=== PATIENT | female | born 1995 | race Caucasian/White ===

== ENCOUNTER 2018-12-29 12:30 | Emergency (ER) | payer OTHER ==
[2018-12-29] MEDS ORDERED: FAMOTIDINE 20 MG/2 ML VIAL IV ONE (14:56)
[2018-12-29] MEDS ORDERED: ONDANSETRON 4 MG/2 ML VIAL ONE (14:56)
[2018-12-29] MEDS ORDERED: NA CHLORIDE 0.9% 1,000 ML ONE ×2 (14:56→16:19)
[2018-12-29 15:08] LABS: Absolute Lymphocytes (CBC) 0.8 K/uL (0.7-4.9); Absolute Monocytes 0.7 K/uL (0.1-1.3); Absolute Neutrophil 15.5 K/uL (1.8-8.0); Basophils % 0.2 % (0-1.3); Eosinophils % 0.3 % (0-4.4); Hematocrit 46.1 % (36.0-45.0); Lymphocytes % 4.9 % (15.3-44.8); Monocytes % 4.2 % (3.3-12.3); RBC Red Blood Cell Count 5.02 M/uL (3.86-4.86)
[2018-12-29 15:12] LABS: ALT/SGPT 59 U/L (12-78); AST/SGOT 105 U/L (15-37); Albumin 4.2 g/dL (3.4-5.0); Alkaline Phosphatase 48 U/L (45-117); BUN Blood Urea Nitrogen 15 mg/dL (7-18); Bicarbonate 26 mmol/L (21-32); Bilirubin Direct 0.2 mg/dL (0-0.2); Bilirubin Total 0.5 mg/dL (0.2-1.0); Glucose Level 90 mg/dL (74-106); Lipase 84 U/L (73-393); Potassium 3.5 mmol/L (3.5-5.1); Protein, Total 7.4 g/dL (6.4-8.2); Sodium Level 141 mmol/L (136-145)
--- NOTE | 2018-12-29 16:04 | RAD REPORT ---
EXAM DESCRIPTION: CT - Abdomen Pelvis W Contrast - 12/29/2018 3:39 pm CLINICAL HISTORY: Abdominal pain with diarrhea and vomiting COMPARISON: none. TECHNIQUE: Computed axial tomography of the abdomen pelvis was obtained. 100 cc Isovue-300 was admin istered intravenously. Oral contrast was not requested which limits evaluation of bowel. All CT scans are performed using dose optimization technique as appropriate and may include automated exposure control or mA/KV adjustment according to patient size. FINDINGS: The liver, spleen, pancreas, adrenal and kidneys appear unremarkable. There is no evidence of diverticulitis. The appendix is normal caliber An adnexal mass is not seen Fluid is present throughout nondilated small bowel IMPRESSION: Fluid within nondilated small bowel may indicate an enteritis
[2018-12-29] MEDS ORDERED: PROMETHAZINE 25 MG/ML VIAL ONE (16:19)
--- NOTE | 2018-12-29 16:59 | ER ---
Nurse's Notes [facility] Name: Codie Matthews Age: 23 yrs Sex: Female : 1995 Arrival Date: 12/29/2018 Time: 12:32 Bed 8 Private MD: None, None Diagnosis: Nausea and vomiting;Diarrhea, unspecified Presentation: 12/29 13:11 Presenting complaint: Patient states: crushing mid abdominal pain started this morning dm5 9/10. pt also report nausea vomiting diarrhea. Transition of care: patient was not received from another setting of care. Onset of symptoms was December 29, 2018. Risk Assessment: Do you want to hurt yourself or someone else? Patient reports no desire to harm self or others. Initial Sepsis Screen: Does the patient meet any 2 criteria? No. Patient's initial sepsis screen is negative. Does the patient have a suspected source of infection? No. Patient's initial sepsis screen is negative. Care prior to arrival: None. 13:11 Method Of Arrival: Ambulatory dm5 13:11 Acuity: ROCHELLE 3 dm5 Triage Assessment: 15:31 General: Appears in no apparent distress. uncomfortable, slender, Behavior is calm, bp cooperative, appropriate for age. 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 - Social history:: Smoking status: Patient/guardian denies using tobacco. - Ebola Screening: : Patient negative for fever greater than or equal to 101.5 degrees Fahrenheit, and additional compatible Ebola Virus Disease symptoms Patient denies exposure to infectious person Patient denies travel to an Ebola-affected area in the 21 days before illness onset No symptoms or risks identified at this time. Screenin:08 Abuse screen: Denies threats or abuse. Denies injuries from another. Nutritional bp screening: No deficits noted. Tuberculosis screening: No symptoms or risk factors identified. Fall Risk None identified. Assessment: 14:30 General: Appears in no apparent distress. uncomfortable, slender, Behavior is calm, bp cooperative, appropriate for age. Pain: Complains of pain in abdomen. Neuro: Level of Consciousness is awake, alert, obeys commands, Oriented to person, place, time, situation, Appropriate for age. Cardiovascular: No deficits noted. Respiratory: Airway is patent Respiratory effort is even, unlabored, Respiratory pattern is regular, symmetrical. GI: Bowel sounds present X 4 quads. Abd is soft X 4 quads Reports nausea, vomiting. : No signs and/or symptoms were reported regarding the genitourinary system. EENT: No deficits noted. Derm: No deficits noted. Musculoskeletal: Circulation, motion, and sensation intact. Range of motion: intact in all extremities. 17:20 Reassessment: PT D/C HOME AMBULATORY, DX WITH NAUSEA AND VOMITING. bp Vital Signs: 13:14 BP 152 / 92; Pulse 107; Resp 18; Temp 98(TE); Pulse Ox 100% on R/A; Weight 69.4 kg; dm5 Height 5 ft. 4 in. (162.56 cm); Pain 9/10; 15:00 BP 128 / 61; Pulse 97; Resp 14; Pulse Ox 100% ; bp 16:00 BP 130 / 68; Pulse 92; Resp 14; Pulse Ox 100% ; bp 17:00 BP 138 / 95; Pulse 87; Resp 12; Pulse Ox 100% ; bp 13:14 Body Mass Index 26.26 (69.40 kg, 162.56 cm) dm5 ED Course: 12:32 Patient arrived in ED. sb2 12:32 None, None is Private Physician. sb2 13:12 Triage completed. dm5 13:14 Arm band placed on right wrist. dm5 13:58 Cheko Hargrove PA is PHCP. cp 13:58 Jabari Haynes MD is Attending Physician. cp 14:07 Deidre Minor, BHARGAV is Primary Nurse. hb 14:30 Inserted saline lock: 20 gauge in right antecubital area, using aseptic technique. bp Blood collected. 15:01 Primary Nurse role handed off by Deidre Minor, BHARGAV bp 15:01 Chirag Zarate, RN is Primary Nurse. bp 15:08 Patient has correct armband on for positive identification. Bed in low position. Call bp light in reach. Side rails up X2. 15:25 Radiology exam delayed due to test not completed at this time. [id number] 15:38 CT completed. Patient tolerated procedure well. Patient moved to CT via wheelchair. sj Patient moved back from CT. 15:39 CT Abd/Pelvis - W/Contrast: no oral contrast In Process Unspecified. EDMS 17:20 No provider procedures requiring assistance completed. IV discontinued, intact, bp bleeding controlled, No redness/swelling at site. Pressure dressing applied. Administered Medications: 14:30 Drug: Zofran 4 mg Route: IVP; Site: right antecubital; bp 15:30 Follow up: Response: Nausea is decreased bp 14:30 Drug: Pepcid 20 mg Route: IVP; Site: right antecubital; bp 15:30 Follow up: Response: Nausea is decreased bp 14:30 Drug: NS 0.9% 1000 ml Route: IV; Rate: 1 bolus; Site: right antecubital; bp 15:30 Follow up: IV Status: Completed infusion; IV Intake: 1000ml bp 16:12 Drug: NS 0.9% 1000 ml Route: IV; Rate: 1 bolus; Site: right antecubital; bp 17:19 Follow up: IV Status: Completed infusion; IV Intake: 1000ml bp 16:12 Drug: Phenergan 12.5 mg Route: IVP; Site: right antecubital; bp 17:18 Follow up: Response: Nausea is decreased bp 17:00 Drug: Bentyl 20 mg Route: PO; bp 17:19 Follow up: Response: Nausea is decreased bp Intake: 15:30 IV: 1000ml; Total: 1000ml. bp 17:19 IV: 1000ml; Total: 2000ml. bp Outcome: 16:58 Discharge ordered by . cp 17:21 Discharged to home ambulatory. bp 17:21 Condition: stable 17:21 Discharge instructions given to patient, Instructed on discharge instructions, follow up and referral plans. medication usage, Demonstrated understanding of instructions, follow-up care, medications, Prescriptions given X 3. 17:22 Patient left the ED. bp Signatures: Dispatcher [facility] Sary Hawkins RN RN dm5 Emma Queen Corey, PA PA cp Baxter, Heather, RN RN hb Chirag Zarate, RN RN bp Ethel Patel Trudy Wood6
--- NOTE | 2018-12-29 16:59 | EDPHYS ---
Physician Documentation [facility] Name: Codie Matthews Age: 23 yrs Sex: Female : 1995 Arrival Date: 12/29/2018 Time: 12:32 Bed 8 Private MD: None, None ED Physician Jabari Haynes HPI: 12/29 14:22 This 23 yrs old Female presents to ER via Ambulatory with complaints of cp Abdominal Pain, Nausea/Vomiting/Diarrhea. 14:22 The patient presents with abdominal pain. Onset: The symptoms/episode began/occurred cp this morning. The symptoms do not radiate. Associated signs and symptoms: Pertinent positives: nausea and vomiting, diarrhea, Pertinent negatives: blood in stools, constipation, dysuria, fever, headache, vomiting blood. The symptoms are described as crampy. Severity of pain: in the emergency department the pain is unchanged despite home interventions. 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 - Social history:: Smoking status: Patient/guardian denies using tobacco. - Ebola Screening: : Patient negative for fever greater than or equal to 101.5 degrees Fahrenheit, and additional compatible Ebola Virus Disease symptoms Patient denies exposure to infectious person Patient denies travel to an Ebola-affected area in the 21 days before illness onset No symptoms or risks identified at this time. ROS: 14:25 Constitutional: Positive for poor PO intake, Negative for body aches, chills, fever. cp 14:25 Eyes: Negative for injury, pain, redness, and discharge. cp 14:25 ENT: Negative for drainage from ear(s), ear pain, sore throat, difficulty swallowing, difficulty handling secretions. 14:25 Cardiovascular: Negative for chest pain, edema, palpitations. 14:25 Respiratory: Negative for cough, shortness of breath, wheezing. 14:25 Abdomen/GI: Positive for abdominal pain, nausea, vomiting, diarrhea, of the epigastric area, Negative for constipation, hematemesis, black/tarry stool, rectal bleeding. 14:25 Back: Negative for radiated pain. 14:25 : Negative for urinary symptoms. 14:25 Skin: Negative for cellulitis, rash. 14:25 Neuro: Negative for altered mental status, headache, weakness. 14:25 All other systems are negative. Exam: 14:33 Constitutional: The patient appears in no acute distress, alert, awake, non-toxic, well cp developed, well nourished, uncomfortable. 14:33 Head/Face: Normocephalic, atraumatic. Eyes: Pupils equal round and reactive to light, cp extra-ocular motions intact. Lids and lashes normal. Conjunctiva and sclera are non-icteric and not injected. Cornea within normal limits. Periorbital areas with no swelling, redness, or edema. ENT: Nares patent. No nasal discharge, no septal abnormalities noted. Tympanic membranes are normal and external auditory canals are clear. Oropharynx with no redness, swelling, or masses, exudates, or evidence of obstruction, uvula midline. Mucous membranes moist. Chest/axilla: Normal chest wall appearance and motion. Nontender with no deformity. No lesions are appreciated. 14:33 Cardiovascular: Rate: tachycardic, Rhythm: regular, Heart sounds: murmur, not appreciated, rub, not appreciated, gallop, not appreciated, Edema: is not appreciated, JVD: is not appreciated. 14:33 Respiratory: the patient does not display signs of respiratory distress, Respirations: normal, no use of accessory muscles, no retractions, no splinting, no tachypnea, labored breathing, is not present, Breath sounds: are clear throughout, no decreased breath sounds, no stridor, no wheezing. 14:33 Abdomen/GI: Inspection: abdomen appears normal, Bowel sounds: active, all quadrants, Palpation: soft, in all quadrants, moderate abdominal tenderness, in the abdomen diffusely, involuntary guarding, is not appreciated. 14:33 Back: pain, is absent, ROM is normal. 14:33 Skin: cellulitis, is not appreciated, no rash present. Vital Signs: 13:14 BP 152 / 92; Pulse 107; Resp 18; Temp 98(TE); Pulse Ox 100% on R/A; Weight 69.4 kg; dm5 Height 5 ft. 4 in. (162.56 cm); Pain 9/10; 15:00 BP 128 / 61; Pulse 97; Resp 14; Pulse Ox 100% ; bp 16:00 BP 130 / 68; Pulse 92; Resp 14; Pulse Ox 100% ; bp 17:00 BP 138 / 95; Pulse 87; Resp 12; Pulse Ox 100% ; bp 13:14 Body Mass Index 26.26 (69.40 kg, 162.56 cm) dm5 MDM: 13:58 Patient medically screened. cp 15:00 Differential diagnosis: appendicitis, cholecystitis, Cholelithiasis, diverticulitis, cp non-specific abd pain, pancreatitis, Pyelonephritis, urinary tract infection. 16:55 Data reviewed: vital signs, nurses notes, lab test result(s), radiologic studies, CT cp scan. 16:55 Counseling: I had a detailed discussion with the patient and/or guardian regarding: the cp historical points, exam findings, and any diagnostic results supporting the discharge/admit diagnosis, lab results, radiology results, to return to the emergency department if symptoms worsen or persist or if there are any questions or concerns that arise at home. Response to treatment: the patient's symptoms have markedly improved after treatment, VSS. Nausea and pain markedly improved. Vomiting resolved. Will discharge to home for continued monitoring. 12/29 14:16 Order name: Basic Metabolic Panel; Complete Time: 15:22 cp 12/29 14:16 Order name: CBC with Diff cp 12/29 14:16 Order name: Creatinine for Radiology; Complete Time: 15:22 cp 12/29 14:16 Order name: Hepatic Function; Complete Time: 15:22 cp 12/29 14:16 Order name: Lipase; Complete Time: 15:22 cp 12/29 14:46 Order name: Urine Dipstick--Ancillary (enter results) bd 12/29 14:46 Order name: Urine --Ancillary (enter results) bd 12/29 15:23 Order name: CT Abd/Pelvis - W/Contrast: no oral contrast; Complete Time: 16:43 cp 12/29 14:16 Order name: IV Saline Lock; Complete Time: 15:10 cp 12/29 14:16 Order name: Labs collected and sent; Complete Time: 15:10 cp 12/29 14:16 Order name: Urine Dipstick-Ancillary (obtain specimen); Complete Time: 15:10 cp 12/29 14:16 Order name: Urine Test (obtain specimen); Complete Time: 15:10 cp Administered Medications: 14:30 Drug: Zofran 4 mg Route: IVP; Site: right antecubital; bp 15:30 Follow up: Response: Nausea is decreased bp 14:30 Drug: Pepcid 20 mg Route: IVP; Site: right antecubital; bp 15:30 Follow up: Response: Nausea is decreased bp 14:30 Drug: NS 0.9% 1000 ml Route: IV; Rate: 1 bolus; Site: right antecubital; bp 15:30 Follow up: IV Status: Completed infusion; IV Intake: 1000ml bp 16:12 Drug: NS 0.9% 1000 ml Route: IV; Rate: 1 bolus; Site: right antecubital; bp 17:19 Follow up: IV Status: Completed infusion; IV Intake: 1000ml bp 16:12 Drug: Phenergan 12.5 mg Route: IVP; Site: right antecubital; bp 17:18 Follow up: Response: Nausea is decreased bp 17:00 Drug: Bentyl 20 mg Route: PO; bp 17:19 Follow up: Response: Nausea is decreased bp Disposition: 18:13 Co-signature as Attending Physician, Jabari Haynes MD. rn Disposition: 12/29/18 16:58 Discharged to Home. Impression: Nausea and vomiting, Diarrhea, unspecified. - Condition is Stable. - Discharge Instructions: Food Choices to Help Relieve Diarrhea, Adult, Diarrhea, Adult, Nausea and Vomiting, Adult. - Prescriptions for Bentyl 20 mg Oral Tablet - take 1 tablet by ORAL route every 6 hours As needed; 20 tablet. Pepcid 20 mg Oral Tablet - take 1 tablet by ORAL route every 12 hours for 5 days; 10 tablet. promethazine 25 mg Oral Tablet - take 1 tablet by ORAL route every 6 hours As needed; 20 tablet. - Medication Reconciliation Form, Thank You Letter, Antibiotic Education, Prescription Opioid Use, Work release form form. - Follow up: Private Physician; When: 1 - 2 days; Reason: Recheck today's complaints. - Problem is new. - Symptoms have improved. Signatures: Dispatcher [employer] Sary Rubin, RN RN dm5 Jabari Haynes MD MD rn Cheko Hargrove PA PA cp Peltier, Brian, RN RN bp Corrections: (The following items were deleted from the chart) 17:22 16:58 12/29/2018 16:58 Discharged to Home. Impression: Nausea and vomiting; Diarrhea, bp unspecified. Condition is Stable. Forms are Medication Reconciliation Form, Thank You Letter, Antibiotic Education, Prescription Opioid Use. Follow up: Private Physician; When: 1 - 2 days; Reason: Recheck today's complaints. Problem is new. Symptoms have improved. cp
[2018-12-29] MEDS ORDERED: DICYCLOMINE HCL 10 MG CAP ONE (17:21)
[2018-12-29 20:13] LABS: Urine Blood 2+ (NEG); Urine Glucose NEGATIVE (NEG); Urine Protein TRACE (NEG); Urine Specific Gravity 1.025 (1.005-1.030)
[2018-12-29 22:09] LABS: Blood Morphology Comment NOT SEEN (NOT SEEN); Platelet Estimate ADEQ; Urine White Blood Cell Casts OK
== END 2018-12-29 17:22 | disposition home or self-care (01) ==
LOC: ER 12:30
DX: R19.7 Diarrhea, unspecified (principal); K21.9 Gastro-esophageal reflux disease without esophagitis
CPT/HCPCS: 36415; 74177; 80048; 80076; 81003; 81025; 83690; 85025; 96361; 96374; 96375; 99284; J2405; J2550; J7030; Q9967